=== PATIENT | female | born 1980 | race American Indian/Alaskan Native ===

== ENCOUNTER 2017-05-12 20:55 | Inpatient (IN) | payer MEDICAID, OTHER ==
[2017-05-12 22:10] LABS: Basophils % (Auto) 0.4 % (0.0-1.8); Eosinophils % (Auto) 0.2 % (0.0-4.3); Hematocrit 32.7 % (30.3-42.9); Hemoglobin 11.1 gm/dl (10.1-14.3); Mean Corpuscular HGB Conc 34 % (30-34); Mean Corpuscular Hemoglobin 31 pg (28-32); Mean Corpuscular Volume 91 fl (79-97); Platelet Count 182 K/mm3 (140-440); Red Blood Count 3.61 M/mm3 (3.65-5.03); White Blood Count 8.2 K/mm3 (4.5-11.0)
[2017-05-12 22:38] LABS: Bilirubin,Urine NEG (Negative); Blood,Urine LG (Negative); Ketones,Urine NEG (Negative); Leukocyte Esterase,Urine NEG (Negative); Mucus,Urine 3+ /HPF; Nitrite,Urine NEG (Negative); Urobilinogen,Urine < 2.0 mg/dL (<2.0)
[2017-05-12 22:40] LABS: Protein,Urine >500 mg/dL (Negative); RBC,Urine > 182.0 /HPF (0.0-6.0)
[2017-05-12] MEDS ORDERED: NACL 0.9% 1000 ML 1,000 ML ONE (23:41)
--- NOTE | 2017-05-13 00:03 | Ultrasound Report ---
FINAL REPORT PROCEDURE: US OB TRANSVAGINAL TECHNIQUE: Real-time transvaginal sonography of the uterus, placenta, amniotic fluid, adnexa, and fetus was performed with image documentation. Measurements were obtained to determine age/size. M-mode Doppler was used to document heartbeat. CPT 02122 HISTORY: Vaginal Bleeding COMPARISON: No prior studies are available for comparison. FINDINGS: A fluid-filled sac is identified in the cervical canal measuring 3.4 x 1.9 x 2.5 centimeters with a septation. A pole or yolk sac is not visualized. Endometrium is 19 millimeters in thickness. There is fluid identified within the vaginal canal. Right ovary measures 2.9 x 1.9 x 2.0 centimeters and left ovary measures 4.7 x 1.9 x 2.8 centimeters. Uterus measures 13 x 6 x 7 centimeters. There is no free fluid in the pelvic cavity. IMPRESSION: Findings are most consistent with incomplete with the retained products a identified within the cervical canal. Clinical correlation is recommended.
--- NOTE | 2017-05-13 00:05 | Ultrasound Report ---
FINAL REPORT PROCEDURE: US OB \T\lt; = 14 WEEKS FETUS TECHNIQUE: Real-time transabdominal sonography of the uterus, placenta, amniotic fluid, adnexa, and fetus was performed with image documentation. Measurements were obtained to determine age/size. M-mode Doppler was used to document heartbeat. CPT 26941 HISTORY: vaginal bleeding COMPARISON: No prior studies are available for comparison. FINDINGS: A fluid-filled sac is identified in the cervical canal measuring 3.4 x 1.9 x 2.5 centimeters with a septation. A pole or yolk sac is not visualized. Endometrium is 19 millimeters in thickness. There is fluid identified within the vaginal canal. Right ovary measures 2.9 x 1.9 x 2.0 centimeters and left ovary measures 4.7 x 1.9 x 2.8 centimeters. Uterus measures 13 x 6 x 7 centimeters. There is no free fluid in the pelvic cavity. IMPRESSION: Findings are most consistent with incomplete with retained products identified within the cervical canal. Clinical correlation is recommended.
[2017-05-13] MEDS ORDERED: NACL 0.9% 1000 ML 1,000 ML IV ONE ×2 (00:11→12:00)
--- NOTE | 2017-05-13 00:57 | Emergency Department Report ---
ED HPI - General Chief complaint: Vaginal Bleeding Stated complaint: VAG BLEEDING Time Seen by Provider: 05/12/17 23:44 Source: patient Mode of arrival: Ambulatory Limitations: No Limitations - History of Present Illness MD Complaint: vaginal bleeding, vaginal discharge, "contractions" -: days(s) (3) Location: pelvis, abdomen Radiation: suprapubic Severity: moderate Severity scale (0 -10): 5 Quality: cramping, stabbing Consistency: intermittent Improves with: movement Worsens with: none Associated symptoms: vaginal bleeding, vaginal discharge, abdominal pain Vaginal bleeding: clots :: Yes Number of weeks : 14 OB History - Current : no complications OB History - Previous Pregnancies: no complications, miscarriage (2 miscarriages in the past.) - Related Data Home Medications Medication Instructions Recorded Confirmed Last Taken Butalb/Acetaminophen/Caffeine 1 cap PO Q8HR PRN 07/28/16 07/28/16 Unknown [Fioricet 50-300-40 mg CAP] Previous Rx's Medication Instructions Recorded Last Taken Type Clopidogrel [Plavix] 75 mg PO QDAY #30 tablet 07/30/16 Unknown Rx Pravastatin Sodium [Pravastatin] 40 mg PO QHS #30 tablet 07/30/16 Unknown Rx Allergies Allergy/AdvReac Type Severity Reaction Status Date / Time No Known Allergies Allergy Verified 05/12/17 21:12 ED Review of Systems ROS: Stated complaint: VAG BLEEDING Other details as noted in HPI Constitutional: weakness. denies: chills, fever Eyes: denies: eye pain, eye discharge, vision change ENT: denies: ear pain, throat pain Respiratory: denies: cough, shortness of breath, wheezing Cardiovascular: syncope. denies: chest pain, palpitations Endocrine: no symptoms reported Gastrointestinal: denies: abdominal pain, nausea, diarrhea Genitourinary: denies: urgency, dysuria, discharge Musculoskeletal: denies: back pain, joint swelling, arthralgia Skin: denies: rash, lesions Neurological: denies: headache, weakness, paresthesias Psychiatric: denies: anxiety, depression Hematological/Lymphatic: denies: easy bleeding, easy bruising ED Past Medical Hx - Past Medical History Hx CVA: Yes Additional medical history: "vertigo" - Surgical History Past Surgical History?: No - Social History Smoking Status: Never Smoker Substance Use Type: None - Medications Home Medications: Home Medications Medication Instructions Recorded Confirmed Last Taken Type Butalb/Acetaminophen/Caffeine 1 cap PO Q8HR PRN 07/28/16 07/28/16 Unknown History [Fioricet 50-300-40 mg CAP] Clopidogrel [Plavix] 75 mg PO QDAY #30 tablet 07/30/16 Unknown Rx Pravastatin Sodium [Pravastatin] 40 mg PO QHS #30 tablet 07/30/16 Unknown Rx ED Physical Exam - General Limitations: No Limitations General appearance: alert, in no apparent distress - Head Head exam: Present: atraumatic, normocephalic - Eye Eye exam: Present: normal appearance - ENT ENT exam: Present: mucous membranes moist - Neck Neck exam: Present: normal inspection - Respiratory Respiratory exam: Present: normal lung sounds bilaterally. Absent: respiratory distress - Cardiovascular Cardiovascular Exam: Present: regular rate, normal rhythm. Absent: systolic murmur, diastolic murmur, rubs, gallop - GI/Abdominal GI/Abdominal exam: Present: soft, normal bowel sounds - Bi-manual exam: Present: other (Cervix dialated to 3 cm with contents within the cervical os. Dark blood in the culdesac of the vaginal. No acute bleed noted. No cervical motion tenderness.) - Extremities Exam Extremities exam: Present: normal inspection - Back Exam Back exam: Present: normal inspection - Neurological Exam Neurological exam: Present: alert, oriented X3 - Psychiatric Psychiatric exam: Present: normal affect, normal mood - Skin Skin exam: Present: warm, dry, intact, normal color. Absent: rash ED Course Vital Signs 05/12/17 05/12/17 05/12/17 21:12 23:28 23:31 Temperature 97.6 F Pulse Rate 106 H 72 68 Respiratory 20 15 12 Rate Blood Pressure 105/74 82/49 O2 Sat by Pulse 100 100 99 Oximetry 05/12/17 05/12/17 05/13/17 23:41 23:50 00:00 Temperature Pulse Rate 72 64 74 Respiratory 18 13 12 Rate Blood Pressure 82/49 91/56 96/57 O2 Sat by Pulse 100 100 100 Oximetry 05/13/17 00:08 Temperature Pulse Rate Respiratory 20 Rate Blood Pressure O2 Sat by Pulse 99 Oximetry - Reevaluation(s) Reevaluation #1: 05/13/17 00:59 Patient blood pressure has improved to 100s/50s with 500 mL. H/H were stable. - Consultations Consultation #1: 05/13/17 01:00 D/W Dr. Katina Moss and patient needs to be admitted for observation of her impending in light of her hypotension but no apparent bleed. Will monitor on labor and delivery. ED Medical Decision Making - Lab Data Result diagrams: 05/12/17 21:44 - Radiology Data Radiology results: report reviewed (Impending with no heart tones noted. ) - Medical Decision Making Patient with syncope from hypotension but no active bleed and appears stable now with 500 mL of fluid. Patient will be admitted by OB for observation and potential intervention if her status changes. Critical care attestation.: If time is entered above; I have spent that time in minutes in the direct care of this critically ill patient, excluding procedure time. ED Disposition Clinical Impression: Incomplete with delayed or excessive hemorrhage Hypotension Qualifiers: Hypotension type: maternal hypotension of Trimester: second trimester Qualified Code(s): O26.52 - Maternal hypotension syndrome, second trimester Disposition: 09 OP ADMIT IP TO THIS HOSP Is pt being admited?: Yes Does the pt Need Aspirin: No Condition: Stable Referrals: PRIMARY CARE, [Primary Care Provider] - 3-5 Days
[2017-05-13 03:14] LABS: Basophils % (Auto) 0.3 % (0.0-1.8); Hematocrit 26.9 % (30.3-42.9); Hemoglobin 9.3 gm/dl (10.1-14.3); Mean Corpuscular HGB Conc 34 % (30-34); Mean Corpuscular Hemoglobin 31 pg (28-32); Mean Corpuscular Volume 91 fl (79-97); Platelet Count 150 K/mm3 (140-440); Red Blood Count 2.97 M/mm3 (3.65-5.03); Red Cell Distribution Width 13.6 % (13.2-15.2); White Blood Count 9.3 K/mm3 (4.5-11.0)
--- NOTE | 2017-05-13 06:17 | Event Note ---
Date: 05/13/17 CC: abdominal pain and vaginal bleeding HPI: This is a 37 yo G 8 P5 LMP 14 weeks ago was seen in ER for abdominal pain and vaginal bleeding. ER physician called and reported a 14 weeks IUP with cardiac activity in cervix. She also had a vasovagal syncopal epidsode in the radiology department. After reporting I admitted patient for observation. I rounded on patient this am and was made aware that the patient was a private patient of [facility] and was only 5 weeks with sac in cervix. Upon evaluation the cervix was noted to be dilated to 3cm with poc at the os. She is not actively bleeding but feeling extremely lightheaded. Upon noting I spoke with Dr. Weston and will order CBC, CMP with observation of vs and bleeeding. i will contact Dr. Cruz to sign out this [facility] patient. H/H 11-9.3 Minimal blood on pad US reviewed in detail d/w patient and she agrees Percocet ( one tab) for headache
[2017-05-13] MEDS ORDERED: PERCOCET 5/325 PO ONE ×2 (06:18→12:00)
[2017-05-13 07:13] LABS: Basophils % (Auto) 0.2 % (0.0-1.8); Hematocrit 26.1 % (30.3-42.9); Mean Corpuscular HGB Conc 35 % (30-34); Mean Corpuscular Hemoglobin 31 pg (28-32); Mean Corpuscular Volume 90 fl (79-97); Platelet Count 162 K/mm3 (140-440); Red Blood Count 2.89 M/mm3 (3.65-5.03); Red Cell Distribution Width 14.1 % (13.2-15.2); White Blood Count 11.7 K/mm3 (4.5-11.0)
[2017-05-13 07:36] LABS: Alanine Aminotransferase 5 units/L (7-56); Albumin 3.7 g/dL (3.9-5); Albumin/Globulin Ratio 1.5 %; Alkaline Phosphatase 34 units/L (35-129); Anion Gap 17 mmol/L; BUN/Creatinine Ratio 15; Blood Urea Nitrogen 9 mg/dL (7-17); Calcium 8.4 mg/dL (8.4-10.2); Carbon Dioxide 23 mmol/L (22-30); Glucose 112 mg/dL (65-100); Potassium 3.7 mmol/L (3.6-5.0); Sodium 139 mmol/L (137-145); Total Protein 6.2 g/dL (6.3-8.2)
--- NOTE | 2017-05-13 09:26 | Progress Note ---
Subjective - Subjective Date of service: 05/13/17 Principal diagnosis: inevitable AB Interval history: Patient is a 37 year old , at 14 weeks by LMP who presented to the ER last night complaining of vaginal bleeding. As per pt, she started to have bleeding at about 2 pm yesterday and developed cramps last night. She was seen in the office at [facility] last week and sonogram showed an empty sac without pole. That was discussed with her and she elected for expectant management. In the ER, her BP was 90/56. IV fluid was given. Pelvic sonogram showed an IUP sac measuring 5 weeks, no pole. She was admitted for observation. This AM, she said that her bleeding has significantly decreased and denies any pain. Vitals: BP: 94/50. HR 84, RR 18, T98.8F. Abd: soft, NT. Cervix: dilated to about 3 cm, POC palpated at the os., No active bleeding. Labs:H/H 9.0/26.1 A: 37 years old at 14 weeks with blighted ovum. POC at cervical os. Plan: Methergine IM ordered. Monitor for bleeding. IV fluid. NPO Patient reports: vaginal bleeding Objective - Vital Signs Vital Signs: Vital Signs - 12hr 05/13/17 05/13/17 05/13/17 01:00 01:20 01:40 Temperature Pulse Rate 87 81 86 Respiratory 17 18 19 Rate Blood Pressure 97/51 100/54 98/52 Blood Pressure [Right] O2 Sat by Pulse 100 100 100 Oximetry 05/13/17 05/13/17 05/13/17 02:00 02:20 02:40 Temperature Pulse Rate 86 87 85 Respiratory 18 18 16 Rate Blood Pressure 99/53 100/53 85/40 Blood Pressure [Right] O2 Sat by Pulse 100 100 100 Oximetry 05/13/17 05/13/17 05/13/17 02:53 03:26 03:27 Temperature 98.8 F 98.8 F Pulse Rate 85 105 H 84 Respiratory 18 20 Rate Blood Pressure 104/59 Blood Pressure 100/55 [Right] O2 Sat by Pulse 99 100 Oximetry 05/13/17 05/13/17 05/13/17 03:31 03:36 03:41 Temperature Pulse Rate 91 H 81 95 H Respiratory Rate Blood Pressure Blood Pressure [Right] O2 Sat by Pulse 100 100 99 Oximetry 05/13/17 05/13/17 05/13/17 03:46 03:51 03:56 Temperature Pulse Rate 86 83 85 Respiratory Rate Blood Pressure Blood Pressure [Right] O2 Sat by Pulse 99 99 99 Oximetry 05/13/17 05/13/17 05/13/17 06:00 08:49 08:51 Temperature 98 F Pulse Rate 84 85 75 Respiratory 20 Rate Blood Pressure 94/50 112/58 Blood Pressure 112/58 [Right] O2 Sat by Pulse 97 100 100 Oximetry 05/13/17 05/13/17 05/13/17 08:56 09:01 09:06 Temperature Pulse Rate 83 89 88 Respiratory Rate Blood Pressure Blood Pressure [Right] O2 Sat by Pulse 100 100 100 Oximetry 05/13/17 05/13/17 09:11 09:16 Temperature Pulse Rate 83 85 Respiratory Rate Blood Pressure Blood Pressure [Right] O2 Sat by Pulse 100 100 Oximetry - Labs Labs: Abnormal Labs 05/13/17 05/13/17 05/13/17 01:09 06:55 06:55 WBC 11.7 H RBC 2.97 L 2.89 L Hgb 9.3 L 9.0 L Hct 26.9 L 26.1 L MCHC 35 H Lymph % (Auto) 12.3 L Lymph # 1.1 L Seg Neutrophils % 83.9 H 79.0 H Seg Neutrophils # 7.8 H 9.3 H Creatinine 0.6 L Glucose 112 H ALT 5 L Alkaline Phosphatase 34 L Total Protein 6.2 L Albumin 3.7 L Laboratory Results - last 24 hr 05/13/17 05/13/17 05/13/17 01:09 06:55 06:55 WBC 9.3 11.7 H RBC 2.97 L 2.89 L Hgb 9.3 L 9.0 L Hct 26.9 L 26.1 L MCV 91 90 MCH 31 31 MCHC 34 35 H RDW 13.6 14.1 Plt Count 150 162 Lymph % (Auto) 12.3 L 16.5 Carter % (Auto) 3.5 4.3 Eos % (Auto) 0.0 0.0 Baso % (Auto) 0.3 0.2 Lymph # 1.1 L 1.9 Carter # 0.3 0.5 Eos # 0.0 0.0 Baso # 0.0 0.0 Seg Neutrophils % 83.9 H 79.0 H Seg Neutrophils # 7.8 H 9.3 H Sodium 139 Potassium 3.7 Chloride 103.0 Carbon Dioxide 23 Anion Gap 17 BUN 9 Creatinine 0.6 L Estimated GFR > 60 BUN/Creatinine Ratio 15 Glucose 112 H Calcium 8.4 Total Bilirubin 0.60 AST 11 ALT 5 L Alkaline Phosphatase 34 L Total Protein 6.2 L Albumin 3.7 L Albumin/Globulin Ratio 1.5
[2017-05-13] MEDS: METHERGINE IM PRN ×2 (11:55→17:35)
[2017-05-13] MEDS ORDERED: LACTATED RINGERS 1,000 ML IV SCH (14:00)
[2017-05-13] MEDS ORDERED: MORPHINE IV ONE (17:08)
--- NOTE | 2017-05-13 17:36 | Discharge Summary ---
Providers - Providers Date of Admission: 05/13/17 00:46 Date of discharge: 05/13/17 Attending physician: CONCEPCION ZARATE MD Primary care physician: SENIOR MEDICAL DIRECTOR Hospitalization Reason for admission: other (incomplete ) Delivery: other (Incomplete ) Procedure details: POC were felt at the cervical os. Methergine was given. Tissues were extracted with ring forceps and sent to pathology. Uterus firm, bleeding is minimal. complications: none Discharge diagnosis: other (incomplete ) Hospital course: Patient presented to the ER earlier this AM for feeling lightheaded. She had a blighted ovum by ultrasound last week. She started to have mild bleeding 2 days ago. Last night, she felt lightheaded and came to the ER. Vitals did showed hypotension, but Hb was 11. Sonogram showed a gest sac measuring 5 weeks in the lower uterine segment. She was given IV fluid and technology project manager consult was called. She as admitted by another provider for observation. On exam, POCs were felt at the os. Methergine IM was given. She did not passed the tissues spontaneously but they were pulled out using a sponge forceps. Uterus remained firm and bleeding was minimal. Vitals remained stable. Pt is being discharged home with PO antibiotics and she is advised to take NSAIDs if she develops any cramp. She was also advised to return to the hospital if she develops any heavy bleeding or pain. She will follow up in the office in 1 week. Condition at discharge: Stable - Discharge Diagnoses (1) Incomplete Status: Acute Plan - Provider Discharge Summary Additional instructions: [] Smoking cessation referral if applicable(refer to patient education folder for contact #) [] Refer to [facility]'s [facility] Booklet Call your doctor immediately for: * Fever > 100.5 * Heavy vaginal bleeding ( >1 pad per hour) * Severe persistent headache * Shortness of breath * Reddened, hot, painful area to leg or breast * Drainage or odor from incision. * Keep incision clean and dry at all times and follow doctor's instructions regarding bathing/showering - Follow up plan Follow up: PRIMARY MD APOLONIA [Primary Care Provider] - 3-5 Days
[2017-05-13 18:16] VITALS: BP 103/60
== END 2017-05-13 20:30 | disposition home or self-care (01) | DRG 770 ==
LOC: ED 20:55 → LD 05-13 00:46 → OB 05-13 10:23
PROVIDERS: ADMIT Obstetrics & Gynecology; ATTEND Obstetrics & Gynecology
PROC: 10D17ZZ Extraction of Products of Conception, Retained, Via Natural or Artificial Opening (ICD-10-PCS; principal; 2017-05-13)
DX: O03.1 Delayed or excessive hemorrhage following incomplete spontaneous abortion (principal); O26.52 Maternal hypotension syndrome, second trimester; Z86.73 Personal history of transient ischemic attack (TIA), and cerebral infarction without residual deficits
CPT/HCPCS: 36415; 76801; 76817; 80053; 81001; 84702; 85025; 86850; 86900; 86901; 88305; J2210; J2270; J7030; J7120